=== PATIENT | male | born 1990 | race African-American/Black ===

== ENCOUNTER → 2024-06-19 | Day surgery (SDC) | payer BC ==
[~2024-06-19] VITALS: Ht 182.9 cm; Wt 90.7 kg
[~2024-06-19] MED LIST: BALANCED SALT IRRIG SOLN COMB1 500ML OP NR; BALANCED SALT IRRIG SOLN COMB2 500ML OP ONE; CYCLOPENTOLATE HCL 1% OPHTH DROPS 2ML RIGHTEYE ONE; FENTANYL CITRATE/PF 50MCG/ML 2ML VIAL ONE; HYALURONATE SODIUM 10MG/ML 0.55ML SYRINGE IO ONE; LACTATED RINGERS 1,000 ML IV SCH; MIDAZOLAM HCL 2 MG/2 ML VIAL ONE; PHENYLEPHRINE HCL 10% OPHTH DROPS 5ML RIGHTEYE ONE; TROPICAMIDE 1% OPHTH DROPS 15ML RIGHTEYE ONE; TRYPAN BLUE 0.5 ML DISP.SYRIN IO ONE
[2024-06-19] MEDS: LACTATED RINGERS 1,000 ML IV SCH (12:46)
== END | disposition home or self-care (01) ==
LOC: OR 06-17 10:41
PROVIDERS: ATTEND Ophthalmology
DX: H25.89 Other age-related cataract (principal); H57.03 Miosis; Z79.899 Other long term (current) drug therapy; Z98.890 Other specified postprocedural states
CPT/HCPCS: 66982; J3010; J2250; J3490; Q9957; V2632

== ENCOUNTER → 2025-06-09 | Outpatient (CLI) | payer BC | END | disposition home or self-care (01) | LOC: LAB 08:08 | PROVIDERS: ATTEND Internal Medicine | DX: E16.4 Increased secretion of gastrin (principal) | CPT/HCPCS: 82941 ==